=== PATIENT | male | born 1950 | race African-American/Black ===

== ENCOUNTER → 2017-09-25 | Outpatient (CLI) | payer OTHER | END | disposition home or self-care (01) | LOC: KCIC MRI 13:43 | DX: S16.1XXD Strain of muscle, fascia and tendon at neck level, subsequent encounter (principal); M47.892 Other spondylosis, cervical region; M25.78 Osteophyte, vertebrae; M48.02 Spinal stenosis, cervical region; M12.88 Other specific arthropathies, not elsewhere classified, other specified site; I10 Essential (primary) hypertension; E11.9 Type 2 diabetes mellitus without complications; E78.5 Hyperlipidemia, unspecified; I25.10 Atherosclerotic heart disease of native coronary artery without angina pectoris; Z95.5 Presence of coronary angioplasty implant and graft; Z90.49 Acquired absence of other specified parts of digestive tract; X58.XXXD Exposure to other specified factors, subsequent encounter | CPT/HCPCS: 72141 ==

== ENCOUNTER → 2017-10-28 | Outpatient (CLI) | payer OTHER ==
[2015-01-14 11:35] VITALS: BP 118/75
[~2017-10-28] MED LIST: ASPI-252 PO; ATEN-56 PO; ATOR40TA PO; EZET10TA18 PO; Hydrocodone/Acetaminophen PO; LOSA1TAB12 PO; LOSA50TA2 PO; METF10007 PO; METO-269 PO; SILO8CAP PO; SITA1TAB11 PO
--- NOTE | 2017-10-28 13:31 | PAIN ---
DATE OF SERVICE: 10/28/2017 CHIEF COMPLAINT: Neck and left upper extremity pain. HISTORY OF PRESENT ILLNESS: This is a 67-year-old male who presents with history of pain for about 4 months, increasing in the base of the neck and left upper extremity without any specific injury or action he is aware of, just came up over time. The patient reports now the pain is in the base of neck, however, inches left shoulder, arm and anterior chest, posterior arm, into the hand and fingers with numbness and tingling in all the fingers of his left hand. The patient reports no symptoms on the right side. Pain in the neck and left upper extremity is constant, sharp, stabbing, throbbing with numbness, radiating pain; changes during the day; worse with activity, standing, walking, reaching over his head, reaching up or repetitive motions, even reaching forward and drive a car. The patient reports it awakens him several times at night from sleep, does not affect his bowel or bladder control or his ability to walk. He has had some physical therapy in the past and did have a trigger point injection with his PMR physician, which was not helpful in the left shoulder. The patient is taking Aleve as well as ibuprofen, which decreased the pain, but only minimally. The patient has tried no other current therapies at this time. He is doing some stretching and strengthening exercises on his own and some exercises that his PMR physician showed him how to do and he is doing these daily. He thinks that maybe helping slightly, but only very minimal and the patient reports still significant pain radiating to left upper extremity as noted. The patient did have an MRI scan of the cervical spine showing degenerative changes, worse at C4-C5, C5-C6, C6-C7, C7-T1 with a [id number] left neural foraminal stenosis, C7-T1 and C6-C7 showing a mild right and [id number] left neural foraminal stenosis and moderate bilateral neural foraminal stenosis at C5-C6. The patient reports a disability rate from 0-10, 10 being the worst, is a 10 in all categories, family and home responsibility, recreation, social activity, sexual behavior, occupation, self-care and life-support activities. PAST MEDICAL HISTORY: Significant for type 2 diabetes, hypertension. PREVIOUS SURGERY: Include bilateral knee replacements and cholecystectomy. CURRENT MEDICATIONS: Include Toprol, silodosin, Hyzaar, Zetia and Janumet. ALLERGIES: The patient has no known drug allergies. FAMILY HISTORY: Significant for cancers and arthritis. SOCIAL HISTORY: The patient does not drink alcohol, does not smoke. Denies any illegal, illicit or recreational drugs. 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 REVIEW OF SYSTEMS: Positive for those items mentioned in history of present illness. All systems reviewed and otherwise negative. It is complete, full and well documented on the patient's chart. PHYSICAL EXAMINATION: VITAL SIGNS: Blood pressure 139/70, pulse is 78, respirations 18, temperature 96.7 degrees Fahrenheit. He is 6 feet 2 inches and weighs 247 pounds. GENERAL: The patient is awake, alert, oriented, appropriate, very pleasant demeanor. HEENT: Head shows normocephalic, atraumatic. Extraocular movements intact and symmetrical. Oral cavity, mucous membranes moist and pink. Dentition is intact. NECK: Shows anterior throat supple without palpable lymphadenopathy noted. Swallow reflex is symmetrical. CHEST: Shows normal on inspection. Breath sounds clear to auscultation bilaterally. HEART: Shows S1, S2 clear. No murmurs auscultated. ABDOMEN: Soft, nontender, nondistended. No palpable organomegaly is noted. No rebound or guarding demonstrated. BACK: Shows spine grossly in the midline. Cervical lordotic curvature, thoracic kyphotic curvature and lumbar lordotic curvature are maintained. The patient's cervical paraspinous musculature shows symmetrical on inspection and palpation shows some moderate tenderness in the inferior aspect of the cervical paraspinous musculature on the left and into the superior medial trapezius, but without atrophy, hypertrophy or asymmetry. No trigger points are demonstrated. The patient's neck shows good rotational motion, but tenderness with extension and left lateral rotation past 45 degrees, right rotation is about 45 degrees, is nontender as is forward flexion. EXTREMITIES: The patient's upper extremities show deep tendon reflexes 2+ in the biceps, triceps tendons. 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 Peripheral pulses are 2+ radial distribution. No peripheral edema is noted. Shoulder shrug is strong and intact, but with significant pain with resistance on the left side as is abduction of the shoulder to 90 degrees with resistance, but without loss of strength on resistance, but significant pain reported at the base of neck and left shoulder radiating anterior bicep and on the left side. SKIN: Warm and dry, good turgor, no edema. No sores, rashes or bruising. IMPRESSION: 1. This is a 67-year-old male with approximate 4-month history of increasing pain, base of the neck, left upper extremity in a radicular fashion following C6 and C7 dermatomal pattern with only minimal reduction in pain after PMR exercises and continued exercise on his own. 2. Arthritis. 3. Hypertension. 4. Type 2 diabetes. PLAN: Options were discussed with the patient including conservative medical management, continued physical therapies and interventional techniques. He would like to pursue interventional techniques as the exercises and therapy is not decreasing the pain significantly. We discussed cervical epidural steroid injection using description as well as anatomical model to describe the procedure. The patient will wait for preauthorization with his insurance provider. Once this is obtained, we will have him return to clinic and plan on cervical epidural steroid injection at that time. In the meantime, the patient will continue with his home therapy exercises and stretching daily as tolerated. RUBY PARIKH MD DR: COLLEEN/sushila JOB#: [id number] / [id number] LAUREN Sutherland MD
== END | disposition home or self-care (01) ==
LOC: PNCL 10:20
PROVIDERS: ATTEND Anesthesiology
DX: M79.602 Pain in left arm (principal); M54.2 Cervicalgia; I10 Essential (primary) hypertension; E11.9 Type 2 diabetes mellitus without complications; M19.90 Unspecified osteoarthritis, unspecified site; E78.5 Hyperlipidemia, unspecified; I25.10 Atherosclerotic heart disease of native coronary artery without angina pectoris; Z95.5 Presence of coronary angioplasty implant and graft; Z90.49 Acquired absence of other specified parts of digestive tract
CPT/HCPCS: G0463

== ENCOUNTER → 2017-11-12 | Outpatient (CLI) | payer OTHER ==
[2015-01-14 11:35] VITALS: BP 118/75
[~2017-11-12] MED LIST changes: +IOHEXOL 180 MG/ML 10 ML VIAL. ONE; +LIDOCAINE 2% PF 2ML VIAL. ONE; +methylPREDNISolone ACETATE 40 MG/ML VIAL. ONE; +methylPREDNISolone ACETATE 80 MG/ML VIAL. ONE
--- NOTE | 2017-11-12 12:46 | PAIN ---
DATE OF SERVICE: 11/12/2017 PROGRESS NOTE FOR PAIN CLINIC DIAGNOSES: Cervical radiculopathy with cervical degenerative disk disease and cervical spinal stenosis. HISTORY OF PRESENT ILLNESS: The patient is a 67-year-old male who returns for followup status post cervical epidural steroid injection evaluation. The patient returns after preauthorization for the procedure, wishing to proceed. The patient reports mostly the pain in the base of the neck, left upper extremity as it was previously. The patient reports it is worse with activity, reaching over his head with left arm, rotational motion and weightbearing with left arm, any repetitive motions even driving the car. The patient reports no new motor or sensory deficits and no new bowel or bladder incontinence or other complaints. The patient reports the pain is 10 on a scale of 10, though 10 on average, 10 at the worst and 10 at the least and is a 10 today. The patient reports no new deficits; however, the comes and goes at night occasionally, repositioning it awakens him from sleep and he can reposition and get back to sleep. PHYSICAL EXAMINATION: VITAL SIGNS: The patient's blood pressure 152/84, pulse 84, respirations 18 and temperature 98.6 degrees Fahrenheit. Height 6 feet 2 inches and weighs 248 pounds. GENERAL: The patient is awake, alert, oriented, appropriate and very pleasant demeanor. HEENT: Head shows normocephalic and atraumatic. Extraocular muscles are intact and symmetrical. Oral cavity: Mucous membranes moist and pink. Dentition is intact. NECK: Shows anterior throat supple. Swallow reflex symmetrical. Neck shows good rotational motion with some minor tenderness with extension as well as with far left lateral rotation past 45 degrees. Right rotation is nontender with palpation. There is some moderate tenderness in the superior medial trapezius as well as inferior cervical paraspinous musculature on the left compared to the right but no trigger points, no radiation and no atrophy or hypertrophy. CHEST: Shows normal on inspection. Breath sounds are clear to auscultation bilaterally. HEART: Shows S1 and S2 clear. No murmurs auscultated. ABDOMEN: Soft, nontender and nondistended. No palpable organomegaly is noted. EXTREMITIES: Upper extremities show deep tendon reflexes at 2+ in the biceps and triceps tendons. 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 Peripheral pulses are 2+ radial distribution. No peripheral edema is noted. Options were discussed with the patient. The patient's old chart was reviewed as well as his current medication regimen updated. Current review of systems updated today as well. We will proceed with a cervical epidural steroid injection today with fluoroscopic guidance. Risks were again discussed including, but not limited to bleeding, infection, possibility of epidural hematoma, subsequent neurologic compromise, dural puncture, headaches, spinal cord and/or nerve damage, side effects of steroid medication and poor results regarding pain control. The patient understands and wished to proceed. The patient will return to the clinic in approximately 2 weeks for followup, was counseled as to return appointment, activity level and side effects to be aware of. DIAGNOSES: Cervical radiculopathy with cervical spinal stenosis and cervical degenerative disk disease. PROCEDURE: Cervical epidural steroid injection, translaminar approach, C6-C7 level using C-arm fluoroscopic guidance under sterile prep and drape using local anesthetic. MEDICATION INJECTED: A total of 120 mg Depo-Medrol plus 5 mL of preservative-free normal saline and 2 mL of Isovue for contrast. CONDITION AT DISCHARGE: Stable. The patient tolerated the procedure well and had no complications. RUBY PARIKH MD DR: COLLEEN/sushila JOB#: [id number] / [id number]
== END | disposition home or self-care (01) ==
LOC: PNCL 09:54
PROVIDERS: ATTEND Anesthesiology
DX: M50.123 Cervical disc disorder at C6-C7 level with radiculopathy (principal); M48.02 Spinal stenosis, cervical region
CPT/HCPCS: 62321; J1030; J1040; J2001; Q9965

== ENCOUNTER → 2017-11-27 | Outpatient (CLI) | payer OTHER ==
[2015-01-14 11:35] VITALS: BP 118/75
[~2017-11-27] MED LIST changes: -IOHEXOL 180 MG/ML 10 ML VIAL. ONE; -LIDOCAINE 2% PF 2ML VIAL. ONE; -methylPREDNISolone ACETATE 40 MG/ML VIAL. ONE; -methylPREDNISolone ACETATE 80 MG/ML VIAL. ONE
--- NOTE | 2017-11-27 16:31 | PAIN ---
DATE OF SERVICE: 11/27/2017 DIAGNOSES: Cervical radiculopathy with cervical degenerative disk disease and cervical spinal stenosis. HISTORY OF PRESENT ILLNESS: The patient is a 67-year-old male who returns for followup status post cervical epidural steroid injection x 1. The patient had 75% improvement in the neck and left shoulder and upper extremity and is still currently 75% improved. The patient reports he still has some aching pain in the back, posterior aspect of the left shoulder base of the neck, radiating to the left triceps and biceps muscle into the left arm, with some tingling, numbness in the hand, was much improved. The patient did increase his activity around the house, doing greater activities at home and driving car more comfortably, using his left arm more comfortably with repetitive motions as well as reaching over his head with his left arm, however, still somewhat aching in the shoulder and arm on the left side. The patient reports he is sleeping 5-6 hours a night, does not awaken him from sleep. Reports no new motor or sensory deficit. The patient reports his pain is a 3 on a scale of 10 at its worst, average and at its least and is a 3 on a scale 10 today. The patient reports it is tingling and burning in the left arm, again radiating down into the thumb at times. PHYSICAL EXAMINATION: VITAL SIGNS: The patient's blood pressure 136/88, pulse 72, respirations 18, temperature 97.6 degrees Fahrenheit, 6 feet 2 inches, weight is 242 pounds. GENERAL: The patient is awake, alert, oriented, appropriate, very pleasant demeanor. HEENT: Head is normocephalic, atraumatic. Extraocular movements are intact, symmetrical. Oral cavity: Mucous membranes moist and pink. Dentition is intact. NECK: Shows anterior throat supple without palpable lymphadenopathy noted. Swallow reflex symmetrical. CHEST: Shows normal with inspection. Breath sounds clear to auscultation bilaterally. HEART: Shows S1, S2 clear. No murmurs auscultated. ABDOMEN: Soft, nontender, nondistended. No palpable organomegaly is noted. No rebound or guarding demonstrated. BACK: Shows spine grossly in the midline. Normal appearing thoracic kyphosis and lumbar lordotic curvature. Lumbar paraspinous muscle shows symmetrical on inspection, as does thoracic and cervical paraspinous musculature. With palpation, cervical paraspinous muscle shows moderate tenderness in the inferior aspect of the cervical paraspinous musculature, more to the left than the right, but is without asymmetry, without trigger points or radiation. The patient has good rotational motion of the cervical spine, both laterally greater than 45 degrees right and left as well as extension greater than 30 degrees, forward flexion at 45 degrees without difficulty. EXTREMITIES: Upper extremities show deep tendon reflexes at 2+ in the biceps and triceps tendons. 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 Bicep and tricep flexion is 4/5, left, 5/5, right as well. Peripheral pulses are 2+ radial distribution. No peripheral edema is noted. Shoulder shrug is strong and intact, some moderate pain with resistance on the left side, but no loss of strength. Options were discussed with the patient. The patient's old chart was reviewed as his current medication regimen updated. Current review of systems updated today as well. We will preauthorize the patient for a second cervical epidural steroid injection. He has done very well after the first injection, still with radicular pain in the C6-C7 dermatomal distribution on the left, again about 75% better after the first injection. The patient will maintain his stretching and strengthening exercises that he has been doing and keeping his shoulder mobile and will have him return once preauthorization is obtained for a second cervical epidural steroid injection at that time. RUBY PARIKH MD DR: COLLEEN/sushila JOB#: [id number] / [id number]
== END | disposition home or self-care (01) ==
LOC: PNCL 08:39
PROVIDERS: ATTEND Anesthesiology
DX: M50.10 Cervical disc disorder with radiculopathy, unspecified cervical region (principal); M48.02 Spinal stenosis, cervical region
CPT/HCPCS: G0463

== ENCOUNTER → 2017-12-26 | Outpatient (CLI) | payer OTHER ==
[2015-01-14 11:35] VITALS: BP 118/75
[~2017-12-26] MED LIST changes: +IOHEXOL 180 MG/ML 10 ML VIAL. ONE; +methylPREDNISolone ACETATE 40 MG/ML VIAL. ONE; +methylPREDNISolone ACETATE 80 MG/ML VIAL. ONE
--- NOTE | 2017-12-26 11:24 | PAIN ---
DATE OF SERVICE: 12/26/2017 PROGRESS NOTE FOR PAIN CLINIC DIAGNOSIS: Cervical radiculopathy with cervical degenerative disk disease and cervical spinal stenosis. HISTORY OF PRESENT ILLNESS: The patient is a 67-year-old male who returns for followup status post cervical epidural steroid injection x 1. The patient reports about 75% improvement after the first injection, still pain in the left shoulder and arm, but much improved. The patient reports occasionally it will bother him at night when he lies on his left side, but otherwise doing well. He is increasing his household activities, increasing walking distances comfortably, doing traveling with much greater ease and comfort. The patient reports no new motor or sensory deficits, no new changes. The patient rates his pain is a 4 on a scale of 10 at its worst, 2 on average, 2 at its least and is a 2 today. The patient reports it is tight and tingling in the left arm, radiating again into the anterior deltoid, biceps into the forearm and some in the posterior shoulder in the left side only. The patient reports no new motor or sensory deficits or other complaints. PHYSICAL EXAMINATION: VITAL SIGNS: The patient's blood pressure 137/82, pulse 88, respirations 16, temperature 97.7 degrees Fahrenheit, height is 6 feet 2 inches, weight is 245 pounds. GENERAL: The patient is awake, alert, oriented, appropriate, very pleasant demeanor. HEENT: Shows normocephalic, atraumatic. Extraocular movements are intact and symmetrical. Oral cavity: Mucous membranes are moist and pink. Dentition is intact. NECK: Shows anterior throat supple without palpable lymphadenopathy noted. Swallow reflex is symmetrical. CHEST: Shows normal on inspection. Breath sounds are clear to auscultation bilaterally. HEART: Shows S1, S2 clear. No murmurs auscultated. ABDOMEN: Soft, nontender, nondistended. No palpable organomegaly is noted. No rebound or guarding demonstrated. BACK: Shows spine grossly in the midline. Normal appearing thoracic kyphosis and lumbar lordotic curvature. Lumbar paraspinous muscle shows symmetrical on inspection, on palpation shows some moderate tenderness, but only diffusely bilaterally. Cervical paraspinous muscles show supple with some moderate tenderness in the left superior medial trapezius as well as the inferior cervical paraspinous musculature on the left only. The patient has full rotational motion of cervical spine, both laterally greater than 45 degrees right and left as well as full extension and full forward flexion without difficulty. EXTREMITIES: Upper extremities show deep tendon reflexes 2+ in the biceps and triceps tendons. 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 Peripheral pulses are 2+ radial distribution. No peripheral edema is noted. Options were discussed with the patient. The patient's old chart was reviewed as his current medication regimen updated. Current review of systems updated today as well. We will proceed with a second in the series of cervical epidural steroid injection today with fluoroscopic guidance. Risks were again discussed including, but not limited to bleeding, infection, possibility of epidural hematoma, subsequent neurological compromise, dural puncture, headaches, spinal cord and/or nerve damage, side effects of steroid medication and poor results regarding pain control. The patient understands and wished to proceed. The patient will return to the clinic in approximately 2 weeks for followup, was counseled on return appointment, activity level and side effects to be aware of. DIAGNOSIS: Cervical radiculopathy with cervical degenerative disk disease and cervical spinal stenosis. PROCEDURE: Cervical epidural steroid injection, translaminar approach at C6-C7 level using C-arm fluoroscopic guidance under sterile prep and drape using local anesthetic. MEDICATION INJECTED: A total of 120 mg Depo-Medrol plus 5 mL of preservative-free normal saline and 2 mL of Isovue for contrast. CONDITION AT DISCHARGE: Stable. The patient tolerated the procedure well, had no complications. RUBY PARIKH MD DR: COLLEEN/sushila JOB#: [id number] / [id number]
== END | disposition home or self-care (01) ==
LOC: PNCL 07:41
PROVIDERS: ATTEND Anesthesiology
DX: M50.123 Cervical disc disorder at C6-C7 level with radiculopathy (principal); M48.02 Spinal stenosis, cervical region
CPT/HCPCS: 62321; J1030; J1040; Q9965